=== PATIENT | male | born 1945 | race Caucasian/White ===

== ENCOUNTER 2018-08-14 08:59 | Emergency (ER) | payer MEDICARE, MEDICAID ==
[~2018-08-14] VITALS: Ht 177.8 cm; Wt 91.0 kg
--- NOTE | 2018-08-14 10:05 | NUR ---
PT A&OX4, RESP EVEN & UNLABORED, SPEECH CLEAR BUT HOARSE, SKIN WNL. CARDIAC & VS MONITORING EQUIPMENT ON. O2 94% ON 2.NC. PT DENIES DYSPNEA, SOB AT THIS TIME. PT'S SON IN ROOM. PT STATES [place] YESTER[place], C/O DIZZINESS & DYSPNEA.
--- NOTE | 2018-08-14 10:07 | NUR ---
LAB BS FOR DRAW
[2018-08-14] MEDS ORDERED: METH10OR PO (10:11)
[2018-08-14 10:19] LABS: BASOPHILS # (AUTO) 0.03 x10^3/uL (0-0.1); BASOPHILS % (AUTO) 0 % (0-1); EOSINOPHILS # (AUTO) 0.04 x10^3/uL (0-0.4); EOSINOPHILS % (AUTO) 1 % (1-7); LYMPHOCYTES # (AUTO) 1.15 x10^3/uL (1-3.4); LYMPHOCYTES % (AUTO) 16 % (22-44); MD NO; MEAN CORPUSCULAR HEMOGLOBIN 30.4 pg (27.5-34.5); MEAN CORPUSCULAR VOLUME 89.6 fL (81-97); MEAN PLATELET VOLUME 8.2 fL (7.4-10.4); MONOCYTES # (AUTO) 0.37 x10^3/uL (0.2-0.8); MONOCYTES % (AUTO) 5 % (2-9); NEUTROPHILS % (AUTO) 78 % (42-75); PLATELET COUNT 234 x10^3/uL (130-400); RED BLOOD COUNT 4.92 x10^6/uL (4.38-5.82); RED CELL DISTRIBUTION WIDTH 13.7 % (9.4-14.8)
[2018-08-14 10:31] LABS: ALANINE AMINOTRANSFERASE 27 U/L (12-78); ALBUMIN 3.7 g/dL (3.4-5.0); ANION GAP 6 mmol/L (5-15); CALCIUM 8.8 mg/dL (8.5-10.1); CHLORIDE 108 mmol/L (98-107); CREATININE 0.87 mg/dL (0.7-1.3)
[2018-08-14 10:35] LABS: ALKALINE PHOSPHATASE 78 U/L (45-117); BILIRUBIN,TOTAL 0.5 mg/dL (0.2-1.0); TOTAL PROTEIN 7.4 g/dL (6.4-8.2); TROPONIN I 0.016 ng/mL (0.000-0.045)
--- NOTE | 2018-08-14 11:31 | NUR ---
THROUGHPUT RN: SPOKE W/ [facility] FOR PT O2 TO UTILIZE DURING STAY IN [place]. PER CLARICE THEY MAY NOT BE ABLE TO GIVE PT PORTABLE AND HAVE PT TAKE THAT O2 W/ HIM ON PLANE TO [place]. SPOKE W/ HARISH FROM [facility] WHO STATES THEY MAY BE ABLE TO PROCESS ORDER BUT THE SOONEST THE PT WILL BE ABLE TO GET O2 IS TOMORROW IF THEY DO PRIORITY SHIPPING. DMITRIY VILLASENOR NOTIFIED OF NEED FOR ASSISTANCE.
--- NOTE | 2018-08-14 11:37 | NUR ---
THROUGHPUT RN: KAUSHAL W/ [facility] WHO WILL LOOK INTO THE APPROPRIATE O2 COMPANY FOR PT'S SITUATION.
--- NOTE | 2018-08-14 12:01 | NUR ---
THROUGHPUT RN: DMITRIY VILLASENOR AT BEDSIDE.
--- NOTE | 2018-08-14 12:26 | NUR ---
RA O2 SAT NEEDED. O2 DC'D FOR READING. BHAVYA BOWDEN IN ROOM EXPLAINING HOME O2 QUALIFICATIONS.
--- NOTE | 2018-08-14 12:37 | NUR ---
MANAGER IN TRAINING BS TO INITIATE RA ROAD TEST W/ PULSE OX
--- NOTE | 2018-08-14 13:08 | NUR ---
ambulated with pulse ox. Patient dropped to 84-86% on room air.
--- NOTE | 2018-08-14 13:08 | NUR ---
Per tech, pt room air sats 84-86% on room air while ambulating. Sats 86% now while resting.
--- NOTE | 2018-08-14 14:03 | NUR ---
THROUGHPUT RN: SW AT BEDSIDE TALKING TO PT ABOUT O2 OPTIONS.
[2018-08-14 15:14] VITALS: BP 171/92
== END 2018-08-14 15:17 | disposition home or self-care (01) ==
LOC: EDBD 08:59 → ED 10:48
DX: J44.1 Chronic obstructive pulmonary disease with (acute) exacerbation (principal); R09.02 Hypoxemia
CPT/HCPCS: 36415; 71046; 80053; 83880; 84484; 85025; 93005; 99284; J7512